=== PATIENT | male | born 1970 | race Caucasian/White ===

== ENCOUNTER 2022-03-03 13:24 | Emergency (ER) | payer OTHER ==
[~2022-03-03] VITALS: Ht 162.6 cm; Wt 74.8 kg
[2022-03-03 13:25] VITALS: BP_SYST 129
--- NOTE | 2022-03-03 13:35 | NUR ---
Patient triaged and placed in waiting room. VSS and patient appears in no acute distress at this time. Accompanied by SELF, awaiting available bed, and MD notified of need for MSE.
--- NOTE | 2022-03-03 13:37 | NUR ---
PT STATES HE USED [facility] FOR LAST 5 DAYS AND FEELS LIKE HIS HEART IS RACING. ++ANXIETY. ++NERVOUS
--- NOTE | 2022-03-03 15:40 | NUR ---
CALL FOR MD ASSESSMENT, NO ANSWER
== END 2022-03-03 15:40 | disposition left against medical advice (07) ==
LOC: SED 13:24
DX: R00.0 Tachycardia, unspecified (principal); R03.0 Elevated blood-pressure reading, without diagnosis of hypertension; Z53.21 Procedure and treatment not carried out due to patient leaving prior to being seen by health care provider